=== PATIENT | female | born 1970 | race African-American/Black ===

== ENCOUNTER → 2020-08-10 | Outpatient (CLI) | payer OTHER, MEDICAID ==
[~2020-08-10] VITALS: Ht 167.6 cm; Wt 88.0 kg
[2020-08-10 09:52] VITALS: BP 148/96
[2020-08-10 10:19] VITALS: BP 149/100
[2020-08-10 10:25] LABS: CALCIUM 9.2 mg/dL (8.5-10.1); CREATININE 1.1 mg/dL (0.6-1.3); POTASSIUM 4.1 mmol/L (3.5-5.1); TOTAL BILIRUBIN 0.4 mg/dL (<0.1-1.0); TOTAL PROTEIN 7.2 g/dL (6.4-8.2)
[2020-08-10 10:50] VITALS: BP 145/92
[2020-08-10 11:07] VITALS: BP 159/103
[2020-08-10 11:28] VITALS: BP 152/95
[2020-08-10 12:00] VITALS: BP 152/95
--- NOTE | 2020-08-10 12:05 | NUR ---
HR REMAINS 80'S DESPITE THREE DOSES METOPROLOL, TOTALLING 300MG (PER DR. ELLIOTT ORDER). AT 1200 PT DRESSED HERSELF AND WENT TO RESTROOM. AFTER 5 MINUTES PT HAD NOT RETURNED TO BAY, THIS RN KNOCKED ON DOOR ASKING IF PT WAS OK, NO VERBAL RESPONSE FROM PT. 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 AT THAT TIME PT EXITED RESTROOM, FULLY DRESSED ASKING IF SHE COULD WAIT FOR HER RIDE IN WAITING ROOM. IV HAD NOT YET BEEN DC'D AND DC INSTRUCTIONS WERE NOT REVIEWED, PT INFORMED THESE WOULD NEED TO BE DONE BEFORE SHE LEAVES. PT THEN STATED SHE HAD REMOVED THE IV HERSELF. THIS RN VISUALIZED SITE, NO BLEEDING/BRUISING/HEMATOMA NOTED, PT HAD PLACED BAND-AID OVER SITE. PT THEN DEPARTED HOLDING TO WAITING ROOM TO AWAIT RIDE TO RETURN TO RETIREMENT.
== END ==
LOC: M.CT 08:54
PROVIDERS: Radiology Diagnostic Radiology; ATTEND Internal Medicine
DX: R07.9 Chest pain, unspecified (principal); R06.02 Shortness of breath; R94.39 Abnormal result of other cardiovascular function study; Z88.0 Allergy status to penicillin; Z88.8 Allergy status to other drugs, medicaments and biological substances; M19.90 Unspecified osteoarthritis, unspecified site; F25.9 Schizoaffective disorder, unspecified